=== PATIENT | male | born 1955 | race Caucasian/White ===

== ENCOUNTER 2025-03-19 17:09 | Inpatient (IN) | payer OTHER, SELFPAY ==
[2025-03-19] VITALS (10 sets, daily range): BP systolic 85–139; BP diastolic 58–80; BMI 38.3
[2025-03-19 11:07] LABS: Glucose - Point of Care 93 mg/dl (70-99)
[2025-03-19 11:19] LABS: Hematocrit 45.6 % (39.0-52.0); Hemoglobin 15.0 g/dL (13.0-18.0); Mean Corp Hgb Conc. 32.9 g/dL (33.0-37.0); Mean Corpuscular Volume 94.2 fL (80.0-94.0); Platelet Count 222 10^3/uL (130-400); Red Cell Dist. Width 14.0 % (11.5-14.5)
[2025-03-19 11:49] LABS: Blood Urea Nitrogen 12 mg/dl (9-20); Calcium 9.5 mg/dl (8.4-10.2); Carbon Dioxide 27 mmol/L (22-30); Chloride 107 mmol/L (98-107); Estimated Creatinine Clearance 118 ml/min; Glucose 93 mg/dl (70-99); Potassium 4.2 mmol/L (3.5-5.1); Sodium 138 mmol/L (135-145); eGFR > 60.00
--- NOTE | 2025-03-19 13:41 | ITS.CL.CATH ---
[facility] - Catheterization
Cardiac Catheterization
Procedure Report:
LEFT HEART CATHETERIZATION
Date of Procedure: March 19, 2025
Procedures performed:
1: Coronary angiography
2: Left internal mammary artery and saphenous vein bypass graft angiography
3: Left ventricular hemodynamic assessment
Primary Care Physician: Dr. Dmitriy Doan
Primary Rug Inspector Helper: Dr. Joseph Bose
INDICATION: The patient is a 69-year-old man with a complex past medical history of diffuse vascular disease status post CABG in 2019 complicated by late sternal wound infection and 2 subsequent surgeries 1 of which was complicated by RV injury and
required 1 hour of circulation arrest followed by free flap placement for the sternal void, severe peripheral arterial disease status post bilateral iliofemoral interventions most recently a left femoropopliteal performed in [place], prior
smoking, hypertension and hyperlipidemia who presents with progressive angina for several weeks.
ACCESS: The patient was prepped and draped in usual sterile fashion. A 6 Chinese sheath was placed in the left artery using the Seldinger over the wire technique.
HEMODYNAMIC FINDINGS (mmHg):
LV(s/d,EDP): 132/10, 24
Ao(s/d,m): 132/65, 91
ANGIOGRAPHIC FINDINGS:
Single-plane Left Ventriculography in HOLDEN Projection: Not done. Normal LV EF by recent echo January 10 done at an outside facility.
Coronary Angiography:
Dominance: Right
Left Main: Complex eccentric preocclusive 90 to 95% stenosis extending into the proximal LAD. Flush occlusion of the circumflex at the ostium.
Left Anterior Descending: The left anterior descending artery has critical proximal calcific disease. The mid and distal LAD is patent with moderate diffuse luminal irregularity. There is 1 major diagonal branch which takes off from the midportion
and has competitive flow from the vein graft.
Left Circumflex: Flush occlusion.
Right Coronary: Mid RCA occlusion. Unchanged from prior anatomy pre-CABG in 2019.
Other angiography:
1: MONTGOMERY to LAD: Proximally occluded.
2: SVG to OM1: Engaged with a 6 Chinese AL-1 guiding catheter. The graft and anastomoses are widely patent. There are collaterals noted to a small caliber posterior descending artery. There are very faint collaterals to the diagonal branch off the
LAD noted.
Fluoroscopy Time (min): 11.2
Radiation Dose (mGy): 721
DAP (Gy.cm2): 49
Closure device: None. A TR band was applied for hemostasis at the left wrist.
Complications: None.
ASSESSMENT:
1: Critical left main/proximal LAD disease as described above.
2: Widely patent SVG to OM providing collaterals to the chronically occluded right PDA and diagonal.
3: Elevated left ventricular filling pressures.
CONCLUSIONS and RECOMMENDATIONS:
1: Admit for high risk percutaneous intervention. Will discuss with surgical team. Suspect may need transfer to tertiary center given his complex prior heart surgery with questionable surgical backup.
Ivis Wang M.D.
--- NOTE | 2025-03-19 16:40 | PTCARENOTE ---
Received pt from r and d lab technician, VSS, monitor showing NSR. Left radial site with dressing c/d/i. No bleeding, no hematoma noted. Denies pain at present. Instructed on activity restrictions, verbalizes understanding. at bedside, call [facility] in
reach.
[2025-03-19] MEDS: SYMBICORT 160/4.5 MCG INHALER 2 PUFF INH (19:13)
[2025-03-19] MEDS: NORVASC 5 MG PO (20:44)
[2025-03-19] MEDS: LOPRESSOR 100 MG PO (20:44)
[2025-03-20] VITALS (7 sets, daily range): BP systolic 126–162; BP diastolic 55–106
--- NOTE | 2025-03-20 02:47 | PTCARENOTE ---
Assumed care on pt at 1900, aaox3, denies cp or SOB. SR on the monitor, HR 60's. Left radial site with CDI dressing,no bleeding or hematoma noted. Instructed on activity restrictions. stayed overnight, call [facility] in reach.
--- NOTE | 2025-03-20 07:44 | W.PN.CARDCBS ---
Addendum entered and electronically signed by Clive Jay MD 03/20/25 11:17:
I saw and examined the patient.
The FLORAL ASSISTANT or PA's note was reviewed and I agree with the note.
Comment: General: Well developed, well nourished in NAD.
Neck: Supple, no JVD, HJR, carotids +2 B/L, no bruits bilaterally.
Heart: Non displaced PMI, RRR, no murmurs, No S3, S4, no rubs.
Lungs: Clear to auscultation bilaterally, no wheeze, rhonchi, rubs bilaterally,
normal expiratory phase.
Extremities: No clubbing, cyanosis or edema bilaterally.
Neuro: Grossly nonfocal, awake, alert and oriented x3.
Cardiology stable at present. Await transfer to [facility]. Discussed with patient and at bedside.
Original Note:
Today's Communication / Plan
-
awaiting bed at [facility]
add compression stockings
Impression / Plan
-
Primary Railroad Car Cleaning Supervisor: Dr. Bose of [facility]
Assessment:
-Progressive angina
-Critical left main/proximal LAD disease by cath with widely patent SVG to OM 03/19/2025
-CAD S/p CABG X 2 (MONTGOMERY to LAD, Vein to OM2) 02/26/19
-S/p sternal rewire with Jessika babin 09/26/19
-S/p sternal wound infection/sepsis (treated @ [facility] (10/19/19)
-Deep sternal wound infection/bulging incision s/p bedside I & D 10/20/19, wound cx w/ staph epidermidis, staph hominis
-anemia/GI bleed S/P Endoscopy 10/20/19
-Deep sternal wound infection
-S/P Debridement DSW, removal all sternal closure hardware, 10/21/19
-RV laceration upon extubation, post coughing- S/P R Femoral cannulation, deep hypothermic circulatory arrest, repair fenestrated longitudinal laceration RV ant wall and outflow, 10/21/19
-Mediastinal Bleeding s/p Repair RV laceration with CP Bypass (right fem art/vein) by Dr. Beltran 10/22/19, with significant post op anemia/thrombocytopenia
-Re Exploration of mediastinum, evacuation of clot 10/23/[address] Miller
-S/P I & D Sternal wound by Dr Beltran, 10/25/19
-S/P Change of deep packing, placement of CT bolsters to sternal edges by Dr. Miller 10/28/19
-C. Difficile 10/2019
-Bilateral PE (incidental finding on CTA chest 11/02/19)
-s/p Sternal Debridement with Abx irrigation by Dr. Miller followed by Sternal Reconstruction with R Rectus Abdominis muscle flap by Dr. Nick on 11/05/19
-Right chest wall hematoma S/P evacuation and placement of catheter drain to pleurvac by IR 11/07/19
-PAD with bilateral iliofemoral interventions and most recently L femoropopliteal bypass in [place]
-HTN
-HLD
-obesity
-hx TIA 2011
-DONIS on CPAP @ home
-chronic Bifascicular block (RBBB/LAFB)
-hx micturition syncope
-hx PAF s/p PVI/ablation 2015
-GERD/hiatal hernia/chronic gastritis/esophageal ulcer
-BPH
-anxiety/depression
-DJD/OA
-s/p lap cholecystectomy & umbilical hernia repair 2013
-R total knee replacement 06/2019
-former smoker (30+ pack years)
Plan:
- Patient presented for cardiac catheterization 03/19/2025 due to symptoms of progressive angina and was found by cath to have evidence of critical left main/proximal LAD disease. Given patient's significant history (as above) and high risk lesion,
CT surgery was consulted and after multidisciplinary discussion, plan for transfer to [facility] for further evaluation
- Awaiting bed availability
- Patient without present chest pain or shortness of breath
- Left wrist site clean dry and intact
- Labs pending this morning
- Continue aspirin, Plavix, high intensity statin, zetia, Lopressor, Imdur, Norvasc
- with LE edema B/L, he reports some degree of chronic edema. will order compression stockings
- d/w CT surgery. d/w nursing
- d/w patient and at bedside
Progress Note - Railroad Car Cleaning Supervisor
Subjective
Date of Service: March 20, 2025
He is anxious to get down to [facility]. No chest pain or shortness of breath
Objective
Labs:
03/19/25 11:05
03/19/25 11:05
Labs
Hgb 15.0 g/dL (13.0-18.0) 03/19/25 11:05
Hct 45.6 % (39.0-52.0) 03/19/25 11:05
Plt Count 222 10^3/uL (130-400) 03/19/25 11:05
Sodium 138 mmol/L (135-145) 03/19/25 11:05
Potassium 4.2 mmol/L (3.5-5.1) 03/19/25 11:05
BUN 12 mg/dl (9-20) 03/19/25 11:05
Creatinine 0.7 mg/dL (0.7-1.3) 03/19/25 11:05
Glucose 93 mg/dl (70-99) 03/19/25 11:05
Vital Signs and I&O:
Vital Signs
Temp Pulse Resp BP Pulse Ox
98.0 F 59 18 146/61 95
03/20/25 03:59 03/20/25 05:00 03/20/25 06:58 03/20/25 04:00 03/20/25 06:58
Vital Signs
Temp Pulse Resp BP Pulse Ox
98.0 F 59 18 146/61 95
07/17/25 03:59 03/20/25 05:00 03/20/25 06:58 03/20/25 04:00 03/20/25 06:58
Intake & Output
03/17/25 03/18/25 03/19/25 03/20/25
07:59 07:59 07:59 07:59
Intake Total 822 / 822
Output Total 200 / 200
Balance 622 / 622
Physical Exam
Physical Exam
GEN: No distress, awake, alert, oriented x3. Sitting in chair
HEENT: supple, anicteric, mmm, EOMI
LUNGS: CTA bilaterally, no wheezes/rales
CV: Reg, S1/S2, no murmur
ABD: soft, BS+, NT/ND
EXT: No cyanosis, clubbing. 1+ edema of bilateral lower extremity
NEURO: Gross non-focal
SKIN: Warm, pink, dry. No rash. Left wrist site clean dry and intact
[2025-03-20] MEDS: SYMBICORT 160/4.5 MCG INHALER 2 PUFF INH ×2 (07:58→20:29)
[2025-03-20] MEDS: LIPITOR 80 MG PO (09:12)
[2025-03-20] MEDS: ZETIA 10 MG PO (09:12)
[2025-03-20] MEDS: LOW STRENGTH ASPIRIN 81 MG PO (09:12)
[2025-03-20] MEDS: LOPRESSOR 100 MG PO ×2 (09:12→20:20)
[2025-03-20] MEDS: PLAVIX 75 MG PO (09:12)
[2025-03-20] MEDS: IMDUR (EXTENDED RELEASE) 60 MG PO (09:12)
[2025-03-20] MEDS: NORVASC 5 MG PO ×2 (09:13→20:19)
[2025-03-20] MEDS: FLOMAX 0.4 MG PO (09:13)
--- NOTE | 2025-03-20 09:18 | CM ---
Reviewed chart. Met with and Mrs. Bush to review discharge plans. He states prior to admission he resides with his spouse in a two story home with seven steps to enter. He states she has thirteen steps to get to kitchen area and then
thirteen steps to get to his bedroom and full bathroom. He states he has a full bathroom and bedroom on each level. He states prior to admission he was independent with ambulation and adls. He states he has a CPAP Machine at home and no other DME.
He states he has a prescription plan. Telephone call to [facility] to check on status of available bed. Currently they do not have a bed. Medical work-up in progress. The discharge plan is to go to [facility] when bed available.
[2025-03-20 09:54] LABS: Hematocrit 43.4 % (39.0-52.0); Hemoglobin 14.3 g/dL (13.0-18.0); Mean Corp Hgb Conc. 32.9 g/dL (33.0-37.0); Mean Corpuscular Volume 95.0 fL (80.0-94.0); Platelet Count 211 10^3/uL (130-400); Red Cell Dist. Width 13.9 % (11.5-14.5)
[2025-03-20 10:17] LABS: Blood Urea Nitrogen 11 mg/dl (9-20); Calcium 9.0 mg/dl (8.4-10.2); Carbon Dioxide 28 mmol/L (22-30); Chloride 104 mmol/L (98-107); Estimated Creatinine Clearance > 125 ml/min; Glucose 199 mg/dl (70-99); Potassium 3.7 mmol/L (3.5-5.1); Sodium 136 mmol/L (135-145); eGFR > 60.00
[2025-03-20 18:29] LABS: Hepatitis C Antibody Negative (Negative)
--- NOTE | 2025-03-20 19:10 | SUR.OPER ---
~[id number]: Handoff report received by oscar FOX. Pt Claudia, ROCAELR BBB on tele 60s-70s, SBP 140s. RA. Pt denies pain at this time. Knee High Tubigrips applied per order. +pulses and +1 edema BLE. L radial site CDI. All needs met at this time, call
[facility] within reach.
~[id number]: Update given to [facility], still awaiting bed. Patient getting restless.
~[id number]: Patient showered, tolerated well. No CP at this time.
~[id number]: Pt Claudia, ROCAELR BBB on tele, RA. No CP at this time. Still waiting for a bed at [facility]. All needs met at this time, call [facility] within reach. handoff report given to oscar RN.
--- NOTE | 2025-03-20 21:55 | PTCARENOTE ---
Assumed care on pt at 1900, aaox3, staying with pt. Denies cp or SOB, ambulates self in hallway and room, steady gait. SR on the monitor, HR 60's. Left radial site with CDI dressing, no bleeding or hematoma noted. Call back within reach
--- NOTE | 2025-03-21 03:20 | PTCARENOTE ---
[facility] called with bed available for pt. Pt being transfered [address], room 857 via [facility]. , report called to [facility] recieving nurse Alesha. All personal belongings sent with pt.
== END 2025-03-21 04:00 | disposition short-term general hospital (02) | DRG 287 ==
LOC: IVU 17:09
PROVIDERS: Physician Assistant; ADMITTING PHYSICIAN Internal Medicine Interventional Cardiology; ATTENDING PHYSICIAN Internal Medicine Interventional Cardiology
PROC: B2131ZZ Fluoroscopy of Multiple Coronary Artery Bypass Grafts using Low Osmolar Contrast (ICD-10-PCS; 2025-03-19)
PROC: B2111ZZ Fluoroscopy of Multiple Coronary Arteries using Low Osmolar Contrast (ICD-10-PCS; 2025-03-19)
PROC: 4A023N7 Measurement of Cardiac Sampling and Pressure, Left Heart, Percutaneous Approach (ICD-10-PCS; 2025-03-19)
DX: I25.110 Atherosclerotic heart disease of native coronary artery with unstable angina pectoris (principal); E78.5 Hyperlipidemia, unspecified; I10 Essential (primary) hypertension; I73.9 Peripheral vascular disease, unspecified; Z87.891 Personal history of nicotine dependence; Z95.1 Presence of aortocoronary bypass graft
CPT/HCPCS: 80048; 82962; 85027; 86803; 93005; 93459; 94640; C1769; C1894; Q9967